=== PATIENT | female | born 1950 | race Caucasian/White ===

== ENCOUNTER 2016-06-06 07:49 | Emergency (ER) | payer BC ==
[~2016-06-06 07:49] MED LIST: CALCIUM 500 MG1 TAB PO; D3 DOTS2000 UNIT PO; FOLIC ACID1 MG PO; IRON325 M1 PO; Ibuprofen; MAGNESIUM500 M1 PO; MULTIVITAMIN1 TAB PO; OMEGA 3 FISH1 CAP.EC PO; [UNRECOGNIZED DRUG - OTHER] PO
[2016-08-08] MEDS ORDERED: MIRALAX17 G2 PO (15:42)
[2016-08-16] MEDS ORDERED: TYLENOL325 M2 PO (12:15)
[2016-08-16] MEDS ORDERED: ULTRAM50 M1 PO (12:17)
[2016-08-16] MEDS ORDERED: MUCINEX600 M1 PO (12:17)
== END 2016-06-06 09:04 ==
LOC: EDMED 07:49
DX: S29.012A Strain of muscle and tendon of back wall of thorax, initial encounter (principal); X58.XXXA Exposure to other specified factors, initial encounter

== ENCOUNTER 2016-07-25 | Inpatient (IN) | payer BC ==
[2016-07-25] MEDS ORDERED: MULTIVITAMINS1 EAC7 PO (19:12)
[2016-07-25] MEDS ORDERED: MAGNESIUM OXID400 M1 PO (19:14)
[2016-07-25] MEDS ORDERED: OMEGA 3 500 SO1 EACH PO (19:16)
[2016-07-25] MEDS ORDERED: TART CHERRY CA1 EACH PO (19:17)
[2016-07-25] MEDS ORDERED: ARTHRITIS MED (19:18)
[2016-07-25] MEDS ORDERED: VOLTAREN100 G1 TOP (20:06)
[2016-07-25] MEDS ORDERED: PROAIR HFA8.5 GM INH (20:07)
[2016-07-25] MEDS ORDERED: DOXYCYCLINE HY100 M3 PO (20:08)
[2016-07-25] MEDS ORDERED: LEVAQUIN500 M1 PO (20:09)
[2016-07-26] MEDS ORDERED: PERCOCET 5-3251 EACH PO (15:24)
[2016-07-26] MEDS ORDERED: VIBRAMYCIN100 M1 PO (15:24)
[2016-07-26] MEDS ORDERED: STOP THE FOLLOWING (15:26)
[2016-08-08] MEDS ORDERED: MIRALAX17 G2 PO (15:42)
[2016-08-16] MEDS ORDERED: TYLENOL325 M2 PO (12:15)
[2016-08-16] MEDS ORDERED: ULTRAM50 M1 PO (12:17)
[2016-08-16] MEDS ORDERED: MUCINEX600 M1 PO (12:17)
== END 2016-07-26 16:20 | DRG 188 ==
DX: J90 Pleural effusion, not elsewhere classified (principal); J40 Bronchitis, not specified as acute or chronic; R91.8 Other nonspecific abnormal finding of lung field; Z87.19 Personal history of other diseases of the digestive system; M19.90 Unspecified osteoarthritis, unspecified site; Z86.010 Personal history of colon polyps